=== PATIENT | female | born 1995 | race Caucasian/White ===

== ENCOUNTER 2025-08-24 15:47 | Emergency (ER) | payer SELFPAY ==
[2025-08-24 16:33] LABS: GLUCOSE,URINE NEGATIVE (NEGATIVE); OCCULT BLOOD,URINE LARGE (NEGATIVE)
[2025-08-24 16:35] LABS: APPEARANCE,URINE HAZY
[2025-08-24 16:40] LABS: EPITHELIAL CELLS,URINE FEW (NONE-FEW)
[2025-08-24] MEDS ORDERED: Sodium Chloride 0.9% 2.5 ML Syringe FLUSH PRN (16:57)
[2025-08-24] MEDS ORDERED: Sodium Chloride 0.9% 10 ML Syringe FLUSH PRN (16:57)
[2025-08-24 17:18] LABS: BASOPHILS ABSOLUTE AUTO 0.05 K/uL (0.00-0.20); BASOPHILS PERCENT AUTO 0.6 % (0.0-1.0); EOSINOPHILS ABSOLUTE AUTO 0.01 K/uL (0.00-0.45); EOSINOPHILS PERCENT AUTO 0.1 % (0.0-6.0); IMMATURE GRAN ABSOLUTE AUTO 0.10 K/uL (0.00-0.05); IMMATURE GRAN PERCENT AUTO 1.1 % (0.0-0.4); LYMPHOCYTES ABSOLUTE AUTO 1.55 K/uL (1.00-4.80); LYMPHOCYTES PERCENT AUTO 17.6 % (24.0-44.0); MEAN PLATELET VOLUME 10.2 fL (9.4-12.3); MONOCYTES ABSOLUTE AUTO 0.80 K/uL (0.00-0.80); MONOCYTES PERCENT AUTO 9.1 % (0.0-8.0); NEUTROPHILS ABSOLUTE AUTO 6.28 K/uL (1.80-7.70); NEUTROPHILS PERCENT AUTO 71.5 % (41.0-71.0); NRBC ABSOLUTE 0.00 K/uL (0.00-0.02); NRBC PERCENT 0.0 /100WBC (0.0-0.2); PLATELET COUNT,PLT 204 K/uL (150-400); RED BLOOD CELL COUNT 4.44 M/uL (4.10-5.30); WHITE BLOOD CELL COUNT,WBC 8.79 K/uL (3.9-11.3)
[2025-08-24 17:39] LABS: A/G RATIO 1.0 (0.9-1.6); ALANINE AMINOTRANSFERASE,ALT 24.0 IU/L (14-63); ASPARTATE AMNIOTRANSFERASE,AST 16.0 IU/L (15-37); BILIRUBIN TOTAL 0.4 mg/dL (0.2-1.0); BLOOD UREA NITROGEN,BUN 8.0 mg/dL (7.0-18.0); CARBON DIOXIDE,CO2 28.7 mmol/L (21.0-32.0); CHLORIDE,CL 102.0 mmol/L (98-107); CREATININE 0.7 mg/dL (0.6-1.0); EST CRCL DRUG DOSING (CG) 92.1 mL/min; ESTIMATED GFR 119.0 mL/min (>60); GLUCOSE RANDOM 85.0 mg/dL (74-106); POTASSIUM,K 4.1 mmol/L (3.5-5.1); PROTEIN TOTAL,TP 7.3 g/dL (6.4-8.2); SODIUM,NA 141.0 mmol/L (136-145)
[2025-08-24] MEDS: Iopamidol 755 MG/ML 500 ML Multipack Bottle IVPUSH STA (17:44)
== END 2025-08-24 19:25 | disposition home or self-care (01) ==
LOC: MW.ED 15:47
DX: M25.511 Pain in right shoulder (principal); R10.9 Unspecified abdominal pain; J18.9 Pneumonia, unspecified organism; R31.9 Hematuria, unspecified; Z88.5 Allergy status to narcotic agent
CPT/HCPCS: 36415; 73030; 74177; 80053; 81001; 83690; 84703; 85025; 93005; 99284; A9270; J7030; Q9967; 93010